=== PATIENT | male | born 1970 | race Caucasian/White ===

== ENCOUNTER 2016-12-08 12:52 | Emergency (ER) | payer MEDICAID ==
[~2016-12-08] VITALS: Ht 165.1 cm; Wt 52.8 kg
[~2016-12-08 12:52] MED LIST: CARB200T PO; PHEN15TA2 PO
[2016-12-08 12:53] VITALS: BP 129/85
== END 2016-12-08 14:25 | disposition home or self-care (01) ==
LOC: ED 14:19
DX: L23.9 Allergic contact dermatitis, unspecified cause (principal)
CPT/HCPCS: 99284; Q0177

== ENCOUNTER 2017-02-01 16:44 | Emergency (ER) | payer MEDICAID ==
[~2017-02-01] VITALS: Ht 165.1 cm; Wt 49.4 kg
[2017-02-01 16:45] VITALS: BP 127/82
== END 2017-02-01 17:17 | disposition home or self-care (01) ==
LOC: ED 17:11
DX: L24.9 Irritant contact dermatitis, unspecified cause (principal); Z76.0 Encounter for issue of repeat prescription
CPT/HCPCS: 99283

== ENCOUNTER 2017-02-11 07:28 | Inpatient (IN) | payer MEDICAID ==
[~2017-02-11] VITALS: Ht 167.6 cm; Wt 52.8 kg
[2017-02-11] MEDS ORDERED: SODIUM CHLORIDE FLUSH 10ML SYR IVF ONE (08:00)
[2017-02-11] MEDS ORDERED: LORazepam 2 MG/ML, 1ML IVPush ONE (08:00)
[2017-02-11 08:27] LABS: BLOOD UREA NITROGEN 20 mg/dL (7-18)
[2017-02-11 08:28] LABS: ACETAMINOPHEN < 2 mcg/mL (10-30)
[2017-02-11 08:41] LABS: DIFF TOTAL CELLS COUNTED 100 CELL DIFF
[2017-02-11 08:45] LABS: VERIFY COUNTS? YES
[2017-02-11] MEDS ORDERED: CEFTRIAXONE PMX 1GM/50ML 50 ML ONE (09:16)
[2017-02-11] MEDS ORDERED: CEFTRIAXONE PMX 1GM/50ML 50 ML IV ONE (09:30)
[2017-02-11] MEDS ORDERED: LEVETIRACETAM 500 MG in SODIUM CHLORIDE 0.9% 100 ML IV ONE (09:34)
[2017-02-11] MEDS ORDERED: ONDANSETRON 2MG/ML, 2ML IVPush ONE (11:30)
[2017-02-11] MEDS ORDERED: morphine SULFATE 10 MG/ML, 1ML IVPush ONE (11:30)
[2017-02-11] MEDS ORDERED: ONDANSETRON 2MG/ML, 2ML ONE (11:32)
[2017-02-11] MEDS ORDERED: MORPHINE SULFATE 4 MG/ML, 1ML ONE ×2 (11:32→12:39)
[2017-02-11] MEDS ORDERED: LORazepam 2 MG/ML, 1ML IVPush PRN (17:30)
[2017-02-11] MEDS ORDERED: POLYETHYLENE GLYCOL 17 GM PACKET PO PRN (17:30)
[2017-02-11] MEDS ORDERED: BISACODYL 10 MG SUPP PR PRN (17:30)
[2017-02-11] MEDS: THIAMINE 100 MG, MVI ADULT 10 ML, FOLIC ACID 1 MG in D5%-0.9% NACL 1,000 ML IV SCH (18:15)
[2017-02-11] MEDS: LEVETIRACETAM 500 MG in SODIUM CHLORIDE 0.9% 100 ML IV SCH (20:52)
[2017-02-11] MEDS: FAMOTIDINE 20 MG TABLET PO SCH (20:56)
[2017-02-11 21:02] VITALS: BP 112/57
[2017-02-12] MEDS: ACETAMINOPHEN 325 MG TABLET PO PRN ×2 (04:03→21:20)
[2017-02-12 04:32] VITALS: BP 107/65
[2017-02-12 04:32] LABS: ASPARTATE AMINO TRANSFERASE 15 U/L (15-37); BLOOD UREA NITROGEN 14 mg/dL (7-18)
[2017-02-12 05:04] LABS: DAU SCREEN DISCLAIMER
[2017-02-12] MEDS: LEVETIRACETAM 500 MG in SODIUM CHLORIDE 0.9% 100 ML IV SCH ×2 (09:48→21:19)
[2017-02-12] MEDS: FAMOTIDINE 20 MG TABLET PO SCH ×2 (09:48→21:20)
[2017-02-12] MEDS ORDERED: LORazepam 2 MG/ML, 1ML IV PRN ×5 (12:30)
[2017-02-12] MEDS: THIAMINE 100 MG, MVI ADULT 10 ML, FOLIC ACID 1 MG in D5%-0.9% NACL 1,000 ML IV SCH (18:12)
[2017-02-12 19:45] VITALS: BP 122/69
[2017-02-13 00:24] VITALS: BP 114/70
[2017-02-13 03:45] VITALS: BP 133/74
[2017-02-13 06:08] LABS: BLOOD UREA NITROGEN 11 mg/dL (7-18)
[2017-02-13 06:11] LABS: ASPARTATE AMINO TRANSFERASE 16 U/L (15-37)
[2017-02-13 07:22] VITALS: BP 131/71
[2017-02-13] MEDS: FAMOTIDINE 20 MG TABLET PO SCH ×2 (08:25→21:00)
[2017-02-13] MEDS: LEVETIRACETAM 500 MG in SODIUM CHLORIDE 0.9% 100 ML IV SCH ×2 (08:25→21:00)
[2017-02-13 13:22] VITALS: BP 111/66
[2017-02-13 19:37] VITALS: BP 124/77
[2017-02-14 03:02] VITALS: BP 135/82
[2017-02-14 05:16] LABS: BLOOD UREA NITROGEN 12 mg/dL (7-18)
[2017-02-14 07:19] VITALS: BP 111/70
[2017-02-14] MEDS: THIAMINE 100 MG/ML, 2ML IM SCH (08:53)
[2017-02-14] MEDS: FAMOTIDINE 20 MG TABLET PO SCH ×2 (08:53→20:22)
[2017-02-14] MEDS: LEVETIRACETAM 500 MG in SODIUM CHLORIDE 0.9% 100 ML IV SCH ×2 (08:53→20:22)
[2017-02-14] MEDS: FOLIC ACID 1 MG TABLET PO SCH (08:53)
[2017-02-14 13:01] VITALS: BP 131/87
[2017-02-14 19:46] VITALS: BP 119/67
[2017-02-14] MEDS: DOCUSATE 100 MG CAPSULE PO PRN (20:22)
[2017-02-15 01:21] VITALS: BP 129/71
[2017-02-15 06:35] VITALS: BP 108/59
[2017-02-15 06:40] VITALS: BP 129/76
[2017-02-15] MEDS: FOLIC ACID 1 MG TABLET PO SCH (08:41)
[2017-02-15] MEDS: DOCUSATE 100 MG CAPSULE PO PRN (08:41)
[2017-02-15] MEDS: FAMOTIDINE 20 MG TABLET PO SCH (08:41)
[2017-02-15] MEDS: LEVETIRACETAM 500 MG in SODIUM CHLORIDE 0.9% 100 ML IV SCH (08:42)
[2017-02-15] MEDS: THIAMINE 100 MG/ML, 2ML IM SCH (08:43)
[2017-02-15 12:25] VITALS: BP 127/70
[2017-02-15 18:46] VITALS: BP 105/78
[2017-02-15] MEDS: LEVETIRACETAM 500 MG TABLET PO SCH (21:05)
[2017-02-15] MEDS: ACETAMINOPHEN 325 MG TABLET PO PRN (21:09)
[2017-02-16 02:00] VITALS: BP 116/72
[2017-02-16 07:18] VITALS: BP 111/62
[2017-02-16] MEDS: FOLIC ACID 1 MG TABLET PO SCH (08:32)
[2017-02-16] MEDS: LEVETIRACETAM 500 MG TABLET PO SCH ×2 (08:32→20:52)
[2017-02-16] MEDS: THIAMINE 100 MG/ML, 2ML IM SCH (08:32)
[2017-02-16 14:25] VITALS: BP 104/56
[2017-02-16 19:08] VITALS: BP 112/73
[2017-02-16] MEDS: ACETAMINOPHEN 325 MG TABLET PO PRN (20:55)
[2017-02-17 01:22] VITALS: BP 117/72
[2017-02-17 05:40] LABS: BLOOD UREA NITROGEN 18 mg/dL (7-18)
[2017-02-17 07:25] VITALS: BP 122/75
[2017-02-17] MEDS: FOLIC ACID 1 MG TABLET PO SCH (08:56)
[2017-02-17] MEDS: ACETAMINOPHEN 325 MG TABLET PO PRN (08:56)
[2017-02-17] MEDS: LEVETIRACETAM 500 MG TABLET PO SCH ×2 (08:56→22:38)
[2017-02-17] MEDS: THIAMINE 100 MG/ML, 2ML IM SCH (10:53)
[2017-02-17 14:55] VITALS: BP 117/71
[2017-02-17 20:00] VITALS: BP 127/72
[2017-02-17] MEDS: NICOTINE 21 MG/24 HR PATCH.TD24 TD SCH (22:38)
[2017-02-18 02:00] VITALS: BP 117/71
[2017-02-18 06:52] VITALS: BP 113/70
[2017-02-18] MEDS: FOLIC ACID 1 MG TABLET PO SCH (08:13)
[2017-02-18] MEDS: LEVETIRACETAM 500 MG TABLET PO SCH ×2 (08:14→20:41)
[2017-02-18] MEDS: THIAMINE 100 MG/ML, 2ML IM SCH (08:14)
[2017-02-18 12:25] VITALS: BP 112/70
[2017-02-18] MEDS: NICOTINE 21 MG/24 HR PATCH.TD24 TD SCH (20:42)
[2017-02-18 21:33] VITALS: BP 106/53
[2017-02-19 00:07] VITALS: BP 125/81
[2017-02-19 06:30] VITALS: BP 118/66
[2017-02-19] MEDS: THIAMINE 100 MG/ML, 2ML IM SCH (09:44)
[2017-02-19] MEDS: FOLIC ACID 1 MG TABLET PO SCH (09:45)
[2017-02-19] MEDS: LEVETIRACETAM 500 MG TABLET PO SCH ×2 (09:45→21:43)
[2017-02-19 12:20] VITALS: BP 98/62
[2017-02-19 19:06] VITALS: BP 110/63
[2017-02-19] MEDS ORDERED: POLYETHYLENE GLYCOL 17 GM PACKET PO PRN (19:30)
[2017-02-19] MEDS ORDERED: BISACODYL 10 MG SUPP PR PRN (19:30)
[2017-02-19] MEDS: NICOTINE 21 MG/24 HR PATCH.TD24 TD SCH (21:43)
[2017-02-20 01:34] VITALS: BP 120/71
[2017-02-20] MEDS: FOLIC ACID 1 MG TABLET PO SCH (08:41)
[2017-02-20] MEDS: LEVETIRACETAM 500 MG TABLET PO SCH ×2 (08:41→19:58)
[2017-02-20] MEDS: THIAMINE 100 MG/ML, 2ML IM SCH (08:42)
[2017-02-20 08:45] VITALS: BP 113/66
[2017-02-20 14:03] VITALS: BP 112/72
[2017-02-20] MEDS: NICOTINE 21 MG/24 HR PATCH.TD24 TD SCH (19:59)
[2017-02-20 20:00] VITALS: BP 115/63
[2017-02-21 02:00] VITALS: BP 112/66
[2017-02-21 05:48] LABS: BLOOD UREA NITROGEN 19 mg/dL (7-18)
[2017-02-21 08:00] VITALS: BP 102/62
[2017-02-21] MEDS: THIAMINE 100MG TABLET PO SCH (08:30)
[2017-02-21] MEDS: LEVETIRACETAM 500 MG TABLET PO SCH ×2 (08:30→21:17)
[2017-02-21] MEDS: FOLIC ACID 1 MG TABLET PO SCH (08:30)
[2017-02-21 14:00] VITALS: BP 111/71
[2017-02-21] MEDS ORDERED: PNEUMOCOCCAL 23 VACCINE IM-VACC ONE (16:30)
[2017-02-21 21:04] VITALS: BP 113/65
[2017-02-21] MEDS: NICOTINE 21 MG/24 HR PATCH.TD24 TD SCH (21:18)
[2017-02-22 02:12] VITALS: BP 123/75
[2017-02-22 06:13] LABS: BLOOD UREA NITROGEN 19 mg/dL (7-18)
[2017-02-22 07:26] VITALS: BP 110/68
[2017-02-22] MEDS: FOLIC ACID 1 MG TABLET PO SCH (08:14)
[2017-02-22] MEDS: THIAMINE 100MG TABLET PO SCH (08:14)
[2017-02-22] MEDS: LEVETIRACETAM 500 MG TABLET PO SCH (08:14)
[2017-02-22 12:06] VITALS: BP 111/70
[2017-02-22] MEDS ORDERED: LEVE500T53 PO (14:46)
[2017-02-22] MEDS ORDERED: TRIAMCINOLONE CRM 0.1%, 15GM TP PRN (15:00)
== END 2017-02-22 16:23 | disposition home or self-care (01) | DRG 82 ==
LOC: MERGE 07:28 → EDBD 07:28 → ED 09:28 → EDIP 09:29 → ED 09:56 → CCU 15:20 → 4EST 02-12 14:08
PROVIDERS: ADMIT Hospitalist; ATTEND Hospitalist
DX: S06.349A Traumatic hemorrhage of right cerebrum with loss of consciousness of unspecified duration, initial encounter (principal); G93.40 Encephalopathy, unspecified; G40.909 Epilepsy, unspecified, not intractable, without status epilepticus; F17.210 Nicotine dependence, cigarettes, uncomplicated; F12.10 Cannabis abuse, uncomplicated; F15.10 Other stimulant abuse, uncomplicated; Z59.0 Homelessness; F10.10 Alcohol abuse, uncomplicated; R40.2410 Glasgow coma scale score 13-15, unspecified time; F11.10 Opioid abuse, uncomplicated; W19.XXXA Unspecified fall, initial encounter; Y93.89 Activity, other specified; Y92.89 Other specified places as the place of occurrence of the external cause; Y99.8 Other external cause status; Z79.899 Other long term (current) drug therapy; Z76.5 Malingerer [conscious simulation]; Z23 Encounter for immunization; Z71.41 Alcohol abuse counseling and surveillance of alcoholic; Z71.51 Drug abuse counseling and surveillance of drug abuser
CPT/HCPCS: 36415; 70450; 71010; 80048; 80053; 80156; 80307; 80329; 82040; 82140; 83735; 84100; 85014; 85018; 85025; 85610; 85730; 87081; 90732; 93005; 93306; 96365; 96366; 96367; 96375; J0696; J1953; J2405; J3411; J7042; 92523-GN; G0480; J2270

== ENCOUNTER 2017-03-21 12:43 | Emergency (ER) | payer MEDICAID, OTHER ==
[~2017-03-21] VITALS: Ht 165.1 cm; Wt 46.0 kg
[~2017-03-21 12:43] MED LIST changes: +LEVE500T53 PO
[2017-03-21 12:47] VITALS: BP 118/74
== END 2017-03-21 18:00 | disposition left against medical advice (07) ==
LOC: ED 17:54
DX: Z53.21 Procedure and treatment not carried out due to patient leaving prior to being seen by health care provider (principal)

== ENCOUNTER 2018-01-14 17:04 | Inpatient (IN) | payer MEDICAID ==
[~2018-01-14] VITALS: Ht 162.6 cm; Wt 60.4 kg
[2018-01-14 17:45] LABS: BASOPHILS # (AUTO) 0.04 x10^3/uL (0-0.1); BASOPHILS % (AUTO) 0 % (0-1); EOSINOPHILS # (AUTO) 0.11 x10^3/uL (0-0.4); EOSINOPHILS % (AUTO) 1 % (1-7); LYMPHOCYTES % (AUTO) 11 % (22-44); MD NO; MEAN CORPUSCULAR HEMOGLOBIN 31.5 pg (27.5-34.5); MEAN CORPUSCULAR HGB CONC 34.3 g/dL (33.2-36.2); MEAN CORPUSCULAR VOLUME 91.8 fL (81-97); MEAN PLATELET VOLUME 7.7 fL (7.4-10.4); MONOCYTES # (AUTO) 0.73 x10^3/uL (0.2-0.8); MONOCYTES % (AUTO) 6 % (2-9); NEUTROPHILS # (AUTO) 9.83 x10^3/uL (1.8-6.8); NEUTROPHILS % (AUTO) 82 % (42-75); PLATELET COUNT 257 x10^3/uL (130-400); RED BLOOD COUNT 5.15 x10^6/uL (4.38-5.82); RED CELL DISTRIBUTION WIDTH 13.2 % (9.4-14.8)
[2018-01-14 17:55] LABS: ALBUMIN 4.5 g/dL (3.4-5.0); ANION GAP 20 mmol/L (5-15); CALCIUM 9.9 mg/dL (8.5-10.1); CHLORIDE 103 mmol/L (98-107); CREATININE 2.19 mg/dL (0.7-1.3)
[2018-01-14] MEDS ORDERED: SODIUM CHLORIDE 0.9% 1,000ML IVBOLUS ONE ×2 (18:00)
[2018-01-14] MEDS ORDERED: SODIUM CHLORIDE 0.9% 1,000 ML IV ONE (18:00)
[2018-01-14] MEDS ORDERED: DOCUSATE 100 MG CAPSULE PO PRN (19:00)
[2018-01-14] MEDS ORDERED: POLYETHYLENE GLYCOL 17 GM PACKET PO PRN (19:00)
[2018-01-14] MEDS ORDERED: ONDANSETRON 2MG/ML, 2ML IVPush PRN (19:00)
[2018-01-14] MEDS ORDERED: BISACODYL 10 MG SUPP PR PRN (19:00)
[2018-01-14] MEDS ORDERED: LABETALOL 5MG/ML, 20ML IVPush PRN (19:00)
[2018-01-14] MEDS ORDERED: LORazepam 2 MG/ML, 1ML IVPush PRN (19:00)
[2018-01-14 19:21] LABS: THYROID STIMULATING HORMONE 3.88 mIU/L (0.358-3.740)
[2018-01-14 20:00] VITALS: BP 136/86
[2018-01-14] MEDS ORDERED: CARB200T PO (20:00)
[2018-01-14] MEDS ORDERED: ACET-1600 PO (20:00)
[2018-01-14] MEDS ORDERED: PNEUMOCOCCAL 23 VACCINE IM-VACC ONE (20:30)
[2018-01-14] MEDS: NS + 20MEQ KCL 1,000 ML IV SCH (21:28)
[2018-01-14] MEDS: NICOTINE 21 MG/24 HR PATCH.TD24 TD SCH (22:17)
[2018-01-15 01:34] LABS: MICROSCOPIC NOT IND
[2018-01-15 01:41] LABS: CULTURE INDICATED? NO
[2018-01-15 01:52] LABS: AMPHETAMINE SCREEN, URINE Positive (Negative); BARBITURATE SCREEN, URINE Negative (Negative); BENZODIAZEPINE SCREEN, URINE Negative (Negative); CANNABINOID SCREEN, URINE Positive (Negative); CHLORIDE,URINE RANDOM 45 mmol/L; COCAINE SCREEN, URINE Negative (Negative); METHADONE SCREEN, URINE Negative (Negative); OPIATE SCREEN, URINE Negative (Negative); POTASSIUM,URINE RANDOM 53 mmol/L; SODIUM,URINE RANDOM 37 mmol/L
[2018-01-15 03:14] VITALS: BP 108/62
[2018-01-15 05:25] LABS: ALBUMIN 3.2 g/dL (3.4-5.0); ANION GAP 6 mmol/L (5-15); BASOPHILS # (AUTO) 0.03 x10^3/uL (0-0.1); BASOPHILS % (AUTO) 0 % (0-1); CALCIUM 7.7 mg/dL (8.5-10.1); CHLORIDE 108 mmol/L (98-107); EOSINOPHILS # (AUTO) 0.18 x10^3/uL (0-0.4); EOSINOPHILS % (AUTO) 2 % (1-7); LYMPHOCYTES # (AUTO) 1.67 x10^3/uL (1-3.4); LYMPHOCYTES % (AUTO) 20 % (22-44); MD NO; MEAN CORPUSCULAR HEMOGLOBIN 31.1 pg (27.5-34.5); MEAN CORPUSCULAR HGB CONC 33.6 g/dL (33.2-36.2); MEAN CORPUSCULAR VOLUME 92.7 fL (81-97); MEAN PLATELET VOLUME 8.1 fL (7.4-10.4); MONOCYTES # (AUTO) 0.66 x10^3/uL (0.2-0.8); MONOCYTES % (AUTO) 8 % (2-9); NEUTROPHILS # (AUTO) 5.94 x10^3/uL (1.8-6.8); NEUTROPHILS % (AUTO) 70 % (42-75); PLATELET COUNT 206 x10^3/uL (130-400); RED CELL DISTRIBUTION WIDTH 13.3 % (9.4-14.8)
[2018-01-15 05:28] LABS: ALANINE AMINOTRANSFERASE 30 U/L (12-78); ALKALINE PHOSPHATASE 106 U/L (45-117); BILIRUBIN,TOTAL 0.8 mg/dL (0.2-1.0); CREATININE 1.06 mg/dL (0.7-1.3); TOTAL PROTEIN 6.4 g/dL (6.4-8.2)
[2018-01-15] MEDS: CARBAMAZEPINE 200 MG TABLET PO SCH ×4 (05:57→20:26)
[2018-01-15] MEDS: NS + 20MEQ KCL 1,000 ML IV SCH ×2 (07:07→22:07)
[2018-01-15 07:27] VITALS: BP 104/64
[2018-01-15] MEDS: LEVETIRACETAM 500 MG TABLET PO SCH ×2 (08:53→20:26)
[2018-01-15] MEDS: ACETAMINOPHEN 325 MG TABLET PO PRN (09:10)
[2018-01-15 13:59] VITALS: BP 121/64
[2018-01-15] MEDS ORDERED: GADOBUTROL 7.5 MMOL/7.5 ML PFS ONE (15:33)
[2018-01-15 18:29] VITALS: BP 113/70
[2018-01-15] MEDS: NICOTINE 21 MG/24 HR PATCH.TD24 TD SCH (20:26)
[2018-01-16 02:29] VITALS: BP 117/77
[2018-01-16] MEDS: CARBAMAZEPINE 200 MG TABLET PO SCH ×4 (05:27→21:15)
[2018-01-16 09:05] VITALS: BP 130/80
[2018-01-16] MEDS: LEVETIRACETAM 500 MG TABLET PO SCH ×2 (10:16→21:15)
[2018-01-16 13:41] VITALS: BP 120/68
[2018-01-16 19:50] VITALS: BP 121/76
[2018-01-16] MEDS: NICOTINE 21 MG/24 HR PATCH.TD24 TD SCH (21:15)
[2018-01-17 00:45] VITALS: BP 121/78
[2018-01-17] MEDS: CARBAMAZEPINE 200 MG TABLET PO SCH ×3 (05:28→17:19)
[2018-01-17 06:57] VITALS: BP 113/79
[2018-01-17 07:18] LABS: BASOPHILS # (AUTO) 0.02 x10^3/uL (0-0.1); BASOPHILS % (AUTO) 0 % (0-1); EOSINOPHILS # (AUTO) 0.52 x10^3/uL (0-0.4); EOSINOPHILS % (AUTO) 8 % (1-7); LYMPHOCYTES # (AUTO) 1.98 x10^3/uL (1-3.4); LYMPHOCYTES % (AUTO) 32 % (22-44); MD NO; MEAN CORPUSCULAR HEMOGLOBIN 30.8 pg (27.5-34.5); MEAN CORPUSCULAR HGB CONC 33.7 g/dL (33.2-36.2); MEAN CORPUSCULAR VOLUME 91.4 fL (81-97); MEAN PLATELET VOLUME 7.4 fL (7.4-10.4); MONOCYTES # (AUTO) 0.43 x10^3/uL (0.2-0.8); MONOCYTES % (AUTO) 7 % (2-9); NEUTROPHILS # (AUTO) 3.32 x10^3/uL (1.8-6.8); NEUTROPHILS % (AUTO) 53 % (42-75); PLATELET COUNT 190 x10^3/uL (130-400); RED BLOOD COUNT 3.98 x10^6/uL (4.38-5.82); RED CELL DISTRIBUTION WIDTH 12.7 % (9.4-14.8)
[2018-01-17 07:27] LABS: ANION GAP 7 mmol/L (5-15); CALCIUM 8.7 mg/dL (8.5-10.1); CHLORIDE 105 mmol/L (98-107)
[2018-01-17 07:28] LABS: CREATININE 0.65 mg/dL (0.7-1.3)
[2018-01-17] MEDS: NICOTINE 21 MG/24 HR PATCH.TD24 TD SCH (09:17)
[2018-01-17] MEDS: LEVETIRACETAM 500 MG TABLET PO SCH (09:17)
[2018-01-17] MEDS: ACETAMINOPHEN 325 MG TABLET PO PRN (11:54)
[2018-01-17 14:16] VITALS: BP 120/75
== END 2018-01-17 18:34 | DRG 101 ==
LOC: EDBD 17:04 → ED 18:14 → MERGE 18:41 → EDIP 18:41 → 4NOR 19:45
PROVIDERS: ADMIT Family Medicine; ATTEND Hospitalist
DX: G40.409 Other generalized epilepsy and epileptic syndromes, not intractable, without status epilepticus (principal); N17.9 Acute kidney failure, unspecified; E87.2 Acidosis; E44.0 Moderate protein-calorie malnutrition; M87.851 Other osteonecrosis, right femur; M87.852 Other osteonecrosis, left femur; G93.89 Other specified disorders of brain; E86.0 Dehydration; R73.9 Hyperglycemia, unspecified; D72.829 Elevated white blood cell count, unspecified; F15.10 Other stimulant abuse, uncomplicated; F17.210 Nicotine dependence, cigarettes, uncomplicated; R32 Unspecified urinary incontinence; Z59.0 Homelessness; Z83.3 Family history of diabetes mellitus
CPT/HCPCS: 36415; 70450; 70553; 72158; 73523; 80048; 80053; 80156; 80307; 81003; 82040; 82436; 82570; 83735; 84133; 84300; 84443; 85025; 90732; 93005; 95816; 99285; A9585; J2405; J3480; J7030

== ENCOUNTER 2018-03-03 16:01 | Emergency (ER) | payer MEDICAID ==
[~2018-03-03] VITALS: Ht 165.1 cm; Wt 65.0 kg
[~2018-03-03 16:01] MED LIST changes: +ACET-1600 PO
[2018-03-03 16:23] VITALS: BP 127/81
== END 2018-03-03 17:50 | disposition left against medical advice (07) ==
LOC: ED 17:44
DX: G89.29 Other chronic pain (principal); M25.551 Pain in right hip; M25.552 Pain in left hip; M87.059 Idiopathic aseptic necrosis of unspecified femur; G40.909 Epilepsy, unspecified, not intractable, without status epilepticus
CPT/HCPCS: 99282

== ENCOUNTER 2019-09-14 19:16 | Emergency (ER) | payer MEDICAID ==
[~2019-09-14] VITALS: Ht 165.1 cm; Wt 60.0 kg
[2019-09-14 19:20] VITALS: BP 114/62
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
== END 2019-09-14 20:22 | disposition home or self-care (01) ==
LOC: ED 20:15
DX: G89.29 Other chronic pain (principal); M79.662 Pain in left lower leg; M79.661 Pain in right lower leg; F10.10 Alcohol abuse, uncomplicated; F17.200 Nicotine dependence, unspecified, uncomplicated; G40.909 Epilepsy, unspecified, not intractable, without status epilepticus; Z72.9 Problem related to lifestyle, unspecified; Z91.14 Patient's other noncompliance with medication regimen; Z75.9 Unspecified problem related to medical facilities and other health care
CPT/HCPCS: 99281; 99283

== ENCOUNTER 2019-10-08 02:20 | Inpatient (IN) | payer MEDICAID ==
[2019-10-08] VITALS (8 sets, daily range): BP systolic 88–122; BP diastolic 47–71
[~2019-10-08] VITALS: Ht 165.1 cm; Wt 57.7 kg
--- NOTE | 2019-10-08 02:34 | NUR ---
BREAK RN: MAYA CHATMAN FROM [facility] FOR C/O SOB. PT. STATES "IT HURTS INSIDE WHEN I BREATH". DIFFICULT TO OBTAIN INFORMATION FROM PT. POOR HISTORIAN. NO RESP DISTRESS NOTED. EVEN, NON-LABORED RESPIRATIONS. RA SAT 96% AND ABOVE. CONTINUOUS PULSE OX AND B/P MONITORS IN PLACE. DR. THORNTON AT TO EVAL PT. AND DISCUSS POC. BS REPORT TO JHONNY CERRATO TO ASSUME PRIMARY CARE OF PT.
[2019-10-08 02:58] LABS: MEAN CORPUSCULAR HEMOGLOBIN 31.2 pg (27.5-34.5); MEAN CORPUSCULAR HGB CONC 33.4 g/dL (33.2-36.2); MEAN CORPUSCULAR VOLUME 93.2 fL (81-97); MEAN PLATELET VOLUME 6.3 fL (7.4-10.4); PLATELET COUNT 357 x10^3/uL (130-400); RED BLOOD COUNT 2.42 x10^6/uL (4.38-5.82); RED CELL DISTRIBUTION WIDTH 15.3 % (9.4-14.8)
[2019-10-08 03:09] LABS: ALANINE AMINOTRANSFERASE 29 U/L (12-78); ALBUMIN 3.2 g/dL (3.4-5.0); ANION GAP 7 mmol/L (5-15); CHLORIDE 103 mmol/L (98-107); CREATININE 0.71 mg/dL (0.7-1.3)
[2019-10-08 03:14] LABS: ALKALINE PHOSPHATASE 106 U/L (45-117); BILIRUBIN,TOTAL 0.4 mg/dL (0.2-1.0); TOTAL PROTEIN 6.3 g/dL (6.4-8.2); TROPONIN I < 0.015 ng/mL (0.000-0.045)
[2019-10-08 03:15] LABS: BASOPHILS % (AUTO) 0 % (0-1); EOSINOPHILS # (AUTO) 0.09 x10^3/uL (0-0.4); EOSINOPHILS % (AUTO) 2 % (1-7); LYMPHOCYTES # (AUTO) 1.22 x10^3/uL (1-3.4); LYMPHOCYTES % (AUTO) 27 % (22-44); MD SCAN; MONOCYTES # (AUTO) 0.38 x10^3/uL (0.2-0.8); MONOCYTES % (AUTO) 8 % (2-9); NEUTROPHILS % (AUTO) 63 % (42-75)
[2019-10-08] MEDS ORDERED: PANTOPRAZOLE 80 MG in SODIUM CHLORIDE 0.9% 50 ML IVPB ONE (04:11)
[2019-10-08] MEDS ORDERED: MORPHINE SULFATE 4 MG/ML, 1ML IVPush PRN ×2 (04:30→07:30)
[2019-10-08] MEDS ORDERED: MAALOX/HYOSCYAMINE/LIDOCAINE 45 ML BTL PO ONE (04:30)
[2019-10-08] MEDS ORDERED: ONDANSETRON 2MG/ML, 2ML IVPush ONE (04:30)
[2019-10-08 04:52] LABS: INTERNATIONAL NORMALIZED RATIO 0.91 (0.93-1.1); PROTHROMBIN TIME 9.6 Seconds (9.6-11.5)
[2019-10-08] MEDS ORDERED: OMNIPAQUE 350 MG/ML, 100ML BOTTLE ONE (05:01)
--- NOTE | 2019-10-08 06:57 | NUR ---
Bedside report received from Anni BARRY, patient care assumed by Natasha at this time. Pt resting in gurney, respirations even and unlabored, NAD, denies additional needs at this time.
--- NOTE | 2019-10-08 07:24 | NUR ---
Pt resting in rgarner, respirations appear unlabored, even chest rise and fall. Second IV started for blood administration. Dr Mello at bedside discussing plan of care with pt. Pt denies any additional needs at this time, NAD. NAHID.
[2019-10-08] MEDS ORDERED: ONDANSETRON 2MG/ML, 2ML IVPush PRN ×2 (07:30→08:00)
[2019-10-08] MEDS ORDERED: PANTOPRAZOLE 80 MG in SODIUM CHLORIDE 0.9% 100 ML IV SCH (07:30)
[2019-10-08] MEDS ORDERED: morphine SULFATE 10 MG/ML, 1ML IVPush PRN (08:00)
[2019-10-08] MEDS ORDERED: BACLOFEN 10 MG TABLET PO PRN (08:00)
[2019-10-08] MEDS ORDERED: hydrALAzine 20 MG/ML, 1ML IVPush PRN (08:00)
[2019-10-08] MEDS ORDERED: ONDANSETRON ODT 4 MG PO PRN (08:00)
[2019-10-08] MEDS ORDERED: ACETAMINOPHEN 325 MG TABLET PO PRN (08:00)
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
[2019-10-08] MEDS ORDERED: NS + 20MEQ KCL 1,000 ML IV ONE (09:19)
--- NOTE | 2019-10-08 09:30 | NUR ---
Late Entry: Pt laying in gurney, eyes open, converses with RN, unlabored respiration, even chest rise and fall, denies additional needs at this time, NAD, WCTM. waiting for bed to [facility] inpatient admit.
[2019-10-08] MEDS: NS + 20MEQ KCL 1,000 ML IV SCH ×2 (09:36→18:17)
--- NOTE | 2019-10-08 10:41 | NUR ---
Pt laying in gurney, eyes closed, unlabored respiration, even chest rise and fall, NAD, WCTM. waiting for Med Tele bed.
[2019-10-08] MEDS ORDERED: PROPOFOL 10 MG/ML, 20ML ONE (11:39)
[2019-10-08] MEDS ORDERED: MAALOX/HYOSCYAMINE/LIDOCAINE 45 ML BTL PO PRN (12:00)
[2019-10-08] MEDS ORDERED: MIDAZOLAM 1 MG/ML, 2ML IV PRN (12:00)
[2019-10-08] MEDS ORDERED: EPHEDRINE 50 MG/ML, 1ML IVPush PRN (12:00)
[2019-10-08] MEDS ORDERED: DIAZEPAM 5 MG/ML, 2ML IVPush PRN (12:00)
[2019-10-08] MEDS ORDERED: EPHEDRINE 50 MG/ML, 1ML IM PRN (12:00)
[2019-10-08] MEDS ORDERED: ONDANSETRON 2MG/ML, 2ML IV PRN (12:00)
[2019-10-08] MEDS ORDERED: DIPHENHYDRAMINE 50 MG/ML, 1ML IVPush PRN (12:00)
[2019-10-08] MEDS ORDERED: FENTANYL PF 100 MCG/2ML IV PRN (12:00)
[2019-10-08] MEDS: CARBAMAZEPINE 200 MG TABLET PO SCH ×3 (13:43→21:52)
[2019-10-08] MEDS: SUCRALFATE 1 GM/10 ML UDC PO SCH ×2 (16:53→21:52)
[2019-10-08] MEDS: OMEPRAZOLE 20 MG CAPSULE.DR PO SCH (16:54)
[2019-10-08 18:41] LABS: AMPHETAMINE SCREEN, URINE Positive (Negative); BARBITURATE SCREEN, URINE Negative (Negative); BENZODIAZEPINE SCREEN, URINE Negative (Negative); CANNABINOID SCREEN, URINE Positive (Negative); COCAINE SCREEN, URINE Negative (Negative); METHADONE SCREEN, URINE Negative (Negative); OPIATE SCREEN, URINE Positive (Negative)
[2019-10-08] MEDS: OXYcodone IR 5MG TABLET PO PRN (21:53)
[2019-10-09 01:43] VITALS: BP 102/52
[2019-10-09 03:07] LABS: MEAN CORPUSCULAR HGB CONC 32.7 g/dL (33.2-36.2); MEAN CORPUSCULAR VOLUME 91.9 fL (81-97); MEAN PLATELET VOLUME 6.4 fL (7.4-10.4); PLATELET COUNT 316 x10^3/uL (130-400); RED BLOOD COUNT 2.45 x10^6/uL (4.38-5.82); RED CELL DISTRIBUTION WIDTH 15.9 % (9.4-14.8)
[2019-10-09 03:31] LABS: BASOPHILS # (AUTO) 0.02 x10^3/uL (0-0.1); BASOPHILS % (AUTO) 0 % (0-1); EOSINOPHILS # (AUTO) 0.11 x10^3/uL (0-0.4); EOSINOPHILS % (AUTO) 2 % (1-7); LYMPHOCYTES % (AUTO) 42 % (22-44); MD SCAN; MONOCYTES # (AUTO) 0.33 x10^3/uL (0.2-0.8); MONOCYTES % (AUTO) 7 % (2-9); NEUTROPHILS # (AUTO) 2.34 x10^3/uL (1.8-6.8); NEUTROPHILS % (AUTO) 49 % (42-75)
[2019-10-09] MEDS: NS + 20MEQ KCL 1,000 ML IV SCH ×3 (03:42→23:45)
[2019-10-09 04:14] LABS: ALBUMIN 2.6 g/dL (3.4-5.0); ANION GAP 2 mmol/L (5-15); CALCIUM 7.9 mg/dL (8.5-10.1); CHLORIDE 110 mmol/L (98-107)
[2019-10-09 04:19] LABS: ALANINE AMINOTRANSFERASE 22 U/L (12-78); ALKALINE PHOSPHATASE 92 U/L (45-117); BILIRUBIN,TOTAL 0.5 mg/dL (0.2-1.0); TOTAL PROTEIN 5.2 g/dL (6.4-8.2)
[2019-10-09] MEDS: SUCRALFATE 1 GM/10 ML UDC PO SCH ×4 (05:52→20:55)
[2019-10-09] MEDS: OXYcodone IR 5MG TABLET PO PRN ×3 (05:52→16:26)
[2019-10-09] MEDS: CARBAMAZEPINE 200 MG TABLET PO SCH ×4 (05:52→20:55)
[2019-10-09] MEDS: OMEPRAZOLE 20 MG CAPSULE.DR PO SCH ×2 (05:54→16:26)
[2019-10-09 07:03] VITALS: BP 95/53
[2019-10-09] MEDS ORDERED: GOLYTELY 4,000ML ORAL.SOL PO ONE (13:30)
[2019-10-09 16:02] VITALS: BP 106/62
[2019-10-09 20:42] VITALS: BP 95/63
[2019-10-10 02:41] VITALS: BP 107/67
[2019-10-10] MEDS: CARBAMAZEPINE 200 MG TABLET PO SCH ×2 (05:53→12:13)
[2019-10-10] MEDS: OMEPRAZOLE 20 MG CAPSULE.DR PO SCH (05:54)
[2019-10-10 06:55] VITALS: BP 126/67
[2019-10-10] MEDS: SUCRALFATE 1 GM/10 ML UDC PO SCH ×2 (07:00→12:13)
[2019-10-10] MEDS ORDERED: hydrALAzine 20 MG/ML, 1ML IV PRN (07:30)
[2019-10-10] MEDS ORDERED: LABETALOL 5MG/ML, 20ML IV PRN (07:30)
[2019-10-10] MEDS ORDERED: OXYcodone 5 MG/5 ML ORAL.SOL UDC PO PRN (07:30)
[2019-10-10] MEDS ORDERED: PROMETHAZINE 25 MG/ML, 1ML IV PRN (07:30)
[2019-10-10] MEDS ORDERED: FENTANYL PF 100 MCG/2ML IV PRN (07:30)
[2019-10-10] MEDS ORDERED: ONDANSETRON 2MG/ML, 2ML IV PRN (07:30)
[2019-10-10] MEDS ORDERED: HYDROmorphone 2 MG/ML, 1ML IVPush PRN (07:30)
[2019-10-10] MEDS ORDERED: SUCR1ORA5 PO (12:33)
[2019-10-10] MEDS ORDERED: OMEP-110 PO (12:33)
[2019-10-10] MEDS ORDERED: ACET325T26 PO (12:33)
[2019-10-11] MEDS ORDERED: NS + 20MEQ KCL 1,000 ML IV SCH (07:34)
== END 2019-10-10 16:40 | disposition home or self-care (01) | DRG 381 ==
LOC: ED 05:09 → EDIP 07:13 → SUATTDRO 07:18 → 4WST 12:46
PROVIDERS: ADMIT Hospitalist; ATTEND Internal Medicine
PROC: 0DB38ZX Excision of Lower Esophagus, Via Natural or Artificial Opening Endoscopic, Diagnostic (ICD-10-PCS; 2019-10-08)
PROC: 0DB28ZX Excision of Middle Esophagus, Via Natural or Artificial Opening Endoscopic, Diagnostic (ICD-10-PCS; 2019-10-08)
PROC: 30233N1 Transfusion of Nonautologous Red Blood Cells into Peripheral Vein, Percutaneous Approach (ICD-10-PCS; principal; 2019-10-08 13:00)
DX: K22.11 Ulcer of esophagus with bleeding (principal); D62 Acute posthemorrhagic anemia; G82.20 Paraplegia, unspecified; E87.6 Hypokalemia; E88.09 Other disorders of plasma-protein metabolism, not elsewhere classified; F12.90 Cannabis use, unspecified, uncomplicated; G40.909 Epilepsy, unspecified, not intractable, without status epilepticus; G93.89 Other specified disorders of brain; K21.0 Gastro-esophageal reflux disease with esophagitis; K22.8 Other specified diseases of esophagus; K44.9 Diaphragmatic hernia without obstruction or gangrene; K59.00 Constipation, unspecified; K76.0 Fatty (change of) liver, not elsewhere classified; F17.200 Nicotine dependence, unspecified, uncomplicated; Z59.0 Homelessness; Z82.49 Family history of ischemic heart disease and other diseases of the circulatory system
CPT/HCPCS: 36415; 71045; 74177; 80053; 80307; 82607; 83540; 83550; 83690; 84443; 84484; 85014; 85018; 85025; 85610; 86704; 86706; 86708; 86803; 86850; 86900; 86923; 87338; 87340; 87806; 88305; 88312; 93005; 96365; 96375; 99291; G0378; J2405; J2704; J3480; Q9967; C9113; G0475; J2270; P9016

== ENCOUNTER 2020-06-24 02:27 | Emergency (ER) | payer MEDICAID ==
[~2020-06-24] VITALS: Ht 165.1 cm; Wt 58.0 kg
[~2020-06-24 02:27] MED LIST changes: +ACET325T26 PO; +OMEP-110 PO; +SUCR1ORA5 PO
[2020-06-24 02:35] VITALS: BP 134/79
[2020-06-24] MEDS ORDERED: IBUPROFEN 600 MG TABLET ONE (02:45)
[2020-06-24] MEDS ORDERED: IBUPROFEN 600 MG TABLET PO ONE (03:00)
--- NOTE | 2020-06-24 03:36 | NUR ---
PT STATED HE NORMALLY GETS AROUND WITH WHEELCHAIR AT HOME, AND WILL BE FINE WITH [facility]
== END 2020-06-24 03:40 | disposition home or self-care (01) ==
LOC: ED 03:00
DX: G89.29 Other chronic pain (principal); M79.662 Pain in left lower leg; M79.661 Pain in right lower leg; K21.9 Gastro-esophageal reflux disease without esophagitis; Z72.9 Problem related to lifestyle, unspecified
CPT/HCPCS: 99283

== ENCOUNTER 2021-03-09 15:45 | Emergency (ER) | payer MEDICAID ==
[~2021-03-09] VITALS: Ht 165.1 cm; Wt 65.0 kg
--- NOTE | 2021-03-09 16:34 | NUR ---
SEIZURE PRECAUTIONS IN PLACE.
[2021-03-09 16:40] LABS: BASOPHILS % (AUTO) 1 % (0-1); EOSINOPHILS % (AUTO) 7 % (1-7); LYMPHOCYTES % (AUTO) 27 % (22-44); MEAN CORPUSCULAR HEMOGLOBIN 25.2 pg (27.5-34.5); MEAN CORPUSCULAR HGB CONC 32.4 g/dL (33.2-36.2); MEAN PLATELET VOLUME 6.6 fL (7.4-10.4); MONOCYTES % (AUTO) 8 % (2-9); NEUTROPHILS % (AUTO) 58 % (42-75); PLATELET COUNT 328 x10^3/uL (130-400); RED BLOOD COUNT 4.58 x10^6/uL (4.38-5.82); RED CELL DISTRIBUTION WIDTH 16.6 % (9.4-14.8)
--- NOTE | 2021-03-09 16:47 | NUR ---
PT TO CT.
[2021-03-09 16:50] LABS: ALBUMIN 3.3 g/dL (3.4-5.0); ANION GAP 5 mmol/L (5-15); CALCIUM 8.6 mg/dL (8.5-10.1); CHLORIDE 106 mmol/L (98-107)
--- NOTE | 2021-03-09 17:08 | NUR ---
Report received from JHONNY Bess. This RN to assume care. Patient returned from CT.
--- NOTE | 2021-03-09 18:35 | NUR ---
Patient sleeping in gurney. Respirations even and unlabored. Awaiting recheck by ERP.
--- NOTE | 2021-03-09 18:50 | NUR ---
REPORT FROM HUMBERTO BARRY
[2021-03-09 19:24] VITALS: BP 115/65
--- NOTE | 2021-03-09 19:24 | NUR ---
PT AWAKE AND ALERT, KNOWS WHERE HE IS AND WHAT HAPPENED. PT UP FOR DC
--- NOTE | 2021-03-09 19:32 | NUR ---
PT HELPED INTO WHEELCHAIR, PT LEFT TO DC DESK IN PERSONAL WHEELCHAIR WITH ALL PERSONAL BELONGINGS. PT VERBALIZES UNDERSTANDING OF DC INSTRUCTIONS.
== END 2021-03-09 19:35 | disposition home or self-care (01) ==
LOC: ED 16:15 → MERGE 16:15 → ED 19:35
DX: S00.81XA Abrasion of other part of head, initial encounter (principal); S09.90XA Unspecified injury of head, initial encounter; M54.2 Cervicalgia; R56.9 Unspecified convulsions; Z91.19 Patient's noncompliance with other medical treatment and regimen; W05.0XXA Fall from non-moving wheelchair, initial encounter; Y93.89 Activity, other specified; Y92.89 Other specified places as the place of occurrence of the external cause; Y99.8 Other external cause status
CPT/HCPCS: 36415; 70450; 72125; 80048; 82040; 85025; 93005; 99285